=== PATIENT | female | born 1990 | race Caucasian/White ===

== ENCOUNTER → 2016-06-17 | Outpatient (CLI) | payer OTHER ==
--- NOTE | 2016-06-17 10:03 | US ---
Bilateral Breast Ultrasound History: Bilateral breast thickening 10-12:00 right breast and 12-1:00 left breast. Technique: I first performed a directed physical examination. This was followed by ultrasound exam with a high frequency linear transducer. Findings: There are radially oriented ridges in the upper outer quadrant of each breast, 4 cm from th e nipple on the right and 2 cm from the nipple on the left. On physical examination in the left ridge is micronodular compared to the smooth ridge on the right. Ultrasound reveals a hypoechoic shadowing area deep beneath the left ridge which is deep adjacent to the pectoral muscle and in the vicinity o f a periareolar circumferential skin scar. Ultrasound reveals an ovoid band of normal parenchyma asso ciated with the right ridge. Impression: Left breast: Architectural distortion deep in the right breast, indeterminant for postope rative scar versus malignancy. Coupled with a micronodular physical examination, we will proceed to diagnostic mammography. Right breast: The smooth palpable ridge is consistent with an island of normal parenchyma. Recommendation: We will proceed to diagnostic mammography. This was discussed in detail with the amelia ent, who is in agreement with the plan. BI-RADS 0. Additional imaging required
--- NOTE | 2016-06-17 11:18 | MA ---
Diagnostic Digital Bilateral Mammogram with CAD History: Bilateral thickenings, upper outer quadrants. Comparison: Ultrasound earlier. Technique: Two conventional views of each breast. A true-lateral view with a marker over the patient' s palpable thickening on the left breast. 3 spot views of the left breast and 2 spot views of the rig ht breast. Images reviewed with iCAD. Breast Density: C Findings: No mammographic correlate to the palpable micronodular thickening in the upper outer quadra nt of the left breast or smooth thickening in the upper outer right breast. There is a small nodular density in the inner left breast approximately 6 cm from the nipple. Impression: 1. The sonographic findings in the left breast are consistent with postoperative scar (fo r prior fibroadenoma) versus malignancy. The micronodular physical examination is somewhat concerning . Breast MRI could be performed to differentiate scar from malignancy. Alternatives include immediate surgical excision and serial physical examination. 2. Small nodular density inner left breast, approximately 6 cm from the nipple. We will return to [facility] for further evaluation and directed physical examination. 3. Normal island of parenchyma upper outer right breast. BI-RADS: Category 0 . Consider additional imaging with breast MRI and return to ultrasound today to r eevaluate a superficial nodular density in the inner left breast. Results discussed with the patient in detail. Results discussed with Dr. Richard Lara M.D.
== END ==
LOC: FIMAGING 09:03
PROVIDERS: ATTEND Surgery
DX: N63 Unspecified lump in breast (principal); Z80.3 Family history of malignant neoplasm of breast; Z13.820 Encounter for screening for osteoporosis
CPT/HCPCS: G0204